=== PATIENT | female | born 1965 | race Caucasian/White ===

== ENCOUNTER 2016-09-24 09:48 | Emergency (ER) | payer MEDICAID ==
[~2016-09-24] VITALS: Ht 157.5 cm; Wt 62.5 kg
[2016-09-24 09:59] VITALS: Ht 157.5 cm; Wt 62.5 kg
[2016-09-24] MEDS ORDERED: KETOROLAC 30 MG INJ IM STA (10:20)
[2016-09-24] MEDS ORDERED: ALPRAZOLAM 0.25 MG TAB PO ONE (10:30)
--- NOTE | 2016-09-24 11:16 | RADRPT ---
PROCEDURE: XR Chest. CLINICAL INDICATION: Chest pain and trauma TECHNIQUE: Single AP view of the chest were obtained COMPARISON: None FINDINGS: The heart and mediastinum are within normal limits. The pulmonary vasculature are unremarkable. The aorta is unremarkable. There is no lung consolidation, pleural effusion or pneumothorax. There i s no acute osseous abnormality. IMPRESSION: No acute disease. RPTAT: AA .Sanchez Rojo MD, MD Date Time Electronically viewed and signed by .Sanchez Rojo MD, MD on 09/24/2016 11:16 .J/
--- NOTE | 2016-09-24 11:23 | RADRPT ---
PROCEDURE: CT Brain without contrast. CLINICAL INDICATION: Trauma. Intracranial hemorrhage. Headache. TECHNIQUE: A CT of the brain was performed on a a multidetector CT scanner utilizing axial imaging from the skull base through the vertex without IV contrast. Multiplanar reformatted images were ma de. Images were reviewed on a PACS workstation. The CTDIvol is 45 mGy and the DLP is 630 mGycm. COMPARISON: None FINDINGS: There is no intracranial hemorrhage, mass effect, or midline shift. No extra-axial fluid collection is seen. The ventricles and sulci are normal in size and configuration. The density of the brain is normal, and the cooper white matter differentiation appears well-preserved. The visualized paranasal sinuses and osseous structures are grossly unremarkable. IMPRESSION: 1. No evidence of acute intracranial pathology. 2. The brain is normal in appearance. .Delta Arnold MD, Date Time Electronically viewed and signed by .Delta Arnold MD, on 09/24/2016 11:22 .A/
[2016-09-24 12:19] VITALS: BP 126/73; PULSE 64; RESP 15
--- NOTE | 2016-09-24 14:58 | ERD ---
ER Documentation Chief Complaint Date/Time DATE: 09/24/16 TIME: 14:56 Chief Complaint 3 AND 1 A 1/2 FOOT FROM FROM STANDING ON A TABLE NOW HAS ESCALANTE CP HPI 51-year-old woman here for evaluation of his posterior scalp injury after falling backwards while losing balance while standing on a very short table. She recalls entire episode and denies loss of consciousness, no complaints of neck pain, no paresis or paresthesias, no chest pain or shortness of breath. ROS All systems reviewed and are negative except as per history of present illness. Medications Home Meds No Active Prescriptions or Reported Meds Allergies Allergies: Coded Allergies: No Known Drug Allergies (Verified Allergy, 03/12/13) PMhx/Soc None History of Surgery: Yes (CESARIAN SECTION X 2) Anesthesia Reaction: Yes Hx Neurological Disorder: No Hx Respiratory Disorders: No Hx Cardiac Disorders: Yes (HTN) Hx Psychiatric Problems: No Hx Miscellaneous Medical Probl: Yes (GERD, DM) Hx Alcohol Use: No Hx Substance Use: No Hx Tobacco Use: No Smoking Status: Never smoker FmHx Family History: No diabetes Physical Exam Vitals Vital Signs Date Time Temp Pulse Resp B/P Pulse Ox O2 Delivery O2 Flow Rate FiO2 09/24/16 12:19 64 15 126/73 96 Room Air 09/24/16 10:34 75 15 159/130 98 Room Air 09/24/16 09:59 97.7 83 18 194/93 98 Physical Exam GENERAL: Well-developed, well-nourished, well-hydrated, anxious HEENT: Moist mucous membranes, minor scalp contusion to the posterior scalp, no laceration or bleeding NEURO: Alert and oriented 3, cranial nerves II through XII intact bilaterally, pupils equal round reactive to light, no focal deficits or facial asymmetry, sensation intact distally Strength 5/5 in upper and lower extremities bilaterally CARDIAC: Regular rate and rhythm, no murmurs rubs or gallops LUNGS: Clear bilaterally no wheezing crackles or stridor ABDOMEN: Soft nontender, no guarding, no rigidity, no rebound, no psoas sign no obturator sign. Normoactive bowel sounds SKIN: Warm and dry to touch, no abrasions, contusions, or hematomas, no lacerations, no ecchymosis, no target lesions, and without ulcers EXTREMITIES: No clubbing cyanosis or edema, calves are bilaterally symmetrical, no Homans sign, no popliteal cord sign. Distal pulses equal and bilateral PSYCH: Appears anxious Results 24 hrs Current Medications Medications (Trade) Dose Ordered Sig/Briana Route PRN Reason Start Time Stop Time Status Last Admin Dose Admin Ketorolac Tromethamine (Toradol) 30 mg ONCE STAT IM 09/24/16 10:20 09/24/16 10:22 DC 09/24/16 10:30 Alprazolam (Xanax) 0.5 mg ONCE ONCE PO 09/24/16 10:30 09/24/16 10:31 DC 09/24/16 10:30 Procedures/MDM CT scan of the brain was negative for acute bleed mass or shift. Chest X-ray 1V Interpreted by me: Soft Tissue: No acute abnormalities Bones: No acute abnormalities Mediastinum/Cardiac Silhouette/Lungs: No acute abnormalities I administered Toradol 30 mg intramuscular injection and alprazolam 0.5 mg p.o. with good response. Differential diagnoses considered, included but not limited to acute coronary syndrome, pulmonary embolism, aortic dissection, abdominal aortic aneurysm, sepsis, stroke, meningitis, encephalitis, pneumonia, appendicitis, cholecystitis , bowel obstruction, pyelonephritis, nephrolithiasis, cystitis, as well as metabolic, hematologic, and electrolyte abnormalities. As well as abscess, cellulitis, fractures, and dislocations. Patient feels much better at this time, and vital signs are normal, symptoms have improved. I did give strict instructions to return to the ED if symptoms continue or worsen, patient will otherwise follow-up with primary care physician. Patient understood instructions and agreed to plan. Disclaimer: Inadvertent spelling or grammatical errors are likely due to EHR/ dictation software use and do not reflect on the overall quality of patient care. Departure Diagnosis: Primary Impression: Scalp contusion Condition: Good Patient Instructions: Scalp Contusion With Wake Up HERSON WILLINGHAM MD Sep 24, 2016 14:58
== END 2016-09-24 12:20 | disposition home or self-care (01) ==
LOC: E/R 09:48
DX: S00.03XA Contusion of scalp, initial encounter (principal); I10 Essential (primary) hypertension; E11.9 Type 2 diabetes mellitus without complications; W08.XXXA Fall from other furniture, initial encounter; Y92.9 Unspecified place or not applicable
CPT/HCPCS: 70450; 71010; 96372; J1885; Z7502; Z7610